=== PATIENT | male | born 1950 | race Caucasian/White ===

== ENCOUNTER → 2016-12-08 | Outpatient (CLI) | payer OTHER | END | disposition home or self-care (01) | LOC: CFH 13:48 | PROVIDERS: ATTEND Internal Medicine Cardiovascular Disease | DX: I10 Essential (primary) hypertension (principal); I20.9 Angina pectoris, unspecified; I35.0 Nonrheumatic aortic (valve) stenosis; I35.1 Nonrheumatic aortic (valve) insufficiency; I37.1 Nonrheumatic pulmonary valve insufficiency; I34.0 Nonrheumatic mitral (valve) insufficiency; I07.1 Rheumatic tricuspid insufficiency; I51.7 Cardiomegaly; E78.5 Hyperlipidemia, unspecified; R91.8 Other nonspecific abnormal finding of lung field; Z87.891 Personal history of nicotine dependence | CPT/HCPCS: 75571; 93306 ==

== ENCOUNTER → 2016-12-19 | Outpatient (CLI) | payer OTHER ==
[~2016-12-19] MED LIST: ESOM40CA PO; NEBI10TA3 PO; OMNIPAQUE 350 MG/ML, 75ML BOTTLE ONE; RIVA20TA PO; ROSU10TA PO; VALS80TA3 PO
== END | disposition home or self-care (01) ==
LOC: CFH 07:55
PROVIDERS: ATTEND Specialist
DX: R91.8 Other nonspecific abnormal finding of lung field (principal); I27.82 Chronic pulmonary embolism; R79.89 Other specified abnormal findings of blood chemistry; M79.89 Other specified soft tissue disorders; M79.605 Pain in left leg; M79.604 Pain in right leg; E78.5 Hyperlipidemia, unspecified; D70.9 Neutropenia, unspecified
CPT/HCPCS: 71260; 76700; 82565; 93970; Q9967

== ENCOUNTER 2016-12-21 11:35 | Observation (INO) | payer OTHER ==
[2016-12-20 10:01] LABS: BLOOD UREA NITROGEN 22 mg/dL (7-18)
[2016-12-20 10:26] VITALS: BP 155/83
[~2016-12-21] VITALS: Ht 182.9 cm; Wt 97.7 kg
[~2016-12-21 11:35] MED LIST changes: -OMNIPAQUE 350 MG/ML, 75ML BOTTLE ONE
[2016-12-21] MEDS ORDERED: SODIUM CHLORIDE 0.9% 1,000 ML IV SCH ×2 (11:56→13:50)
[2016-12-21] MEDS ORDERED: ASPIRIN 325 MG TABLET EC PO ONE (12:00)
[2016-12-21] MEDS ORDERED: ACETAMINOPHEN 325 MG TABLET PO PRN (12:00)
[2016-12-21] MEDS ORDERED: ZOLPIDEM 5MG TABLET PO PRN ×2 (12:00→14:00)
[2016-12-21] MEDS ORDERED: BISACODYL 5 MG EC TABLET PO PRN (12:00)
[2016-12-21] MEDS ORDERED: ONDANSETRON 2MG/ML, 2ML IVPush PRN (12:00)
[2016-12-21] MEDS ORDERED: BISACODYL 10 MG SUPP PR PRN (12:00)
[2016-12-21] MEDS ORDERED: FENTANYL PF 100 MCG/2ML ONE (12:53)
[2016-12-21] MEDS ORDERED: MIDAZOLAM 1 MG/ML, 5ML ONE (12:53)
[2016-12-21] MEDS ORDERED: VERAPAMIL 2.5 MG/ML, 2ML ONE (12:53)
[2016-12-21] MEDS ORDERED: BIVALIRUDIN 250 MG ONE ×2 (12:54→13:08)
[2016-12-21] MEDS ORDERED: TICAGRELOR 90 MG TABLET ONE (12:54)
[2016-12-21] MEDS ORDERED: HEPARIN 1,000 UNITS/ML, 10ML ONE (12:54)
[2016-12-21] MEDS ORDERED: LIDOCAINE 2%, 20ML ONE (12:54)
[2016-12-21] MEDS ORDERED: BIVALIRUDIN 250 MG in DEXTROSE 5% 50 ML IV SCH (13:50)
[2016-12-21] MEDS ORDERED: ASPIRIN 325 MG TABLET EC ONE (13:55)
[2016-12-21 20:23] VITALS: BP 117/73
[2016-12-21] MEDS: ACETAMINOPHEN 325 MG TABLET PO PRN (20:35)
[2016-12-21] MEDS: TICAGRELOR 90 MG TABLET PO SCH (20:36)
[2016-12-21] MEDS ORDERED: ATORVASTATIN 20 MG TABLET PO SCH (21:00)
[2016-12-22 02:00] VITALS: BP 105/61
[2016-12-22] MEDS ORDERED: NEBIVOLOL HCL 5 MG TABLET PO SCH (06:00)
[2016-12-22 06:28] LABS: BLOOD UREA NITROGEN 14 mg/dL (7-18)
[2016-12-22] MEDS ORDERED: OMEPRAZOLE 20 MG CAPSULE.DR PO SCH (07:30)
[2016-12-22 07:43] VITALS: BP 113/67
[2016-12-22] MEDS: TICAGRELOR 90 MG TABLET PO SCH (07:59)
[2016-12-22] MEDS: ACETAMINOPHEN 325 MG TABLET PO PRN (08:08)
[2016-12-22] MEDS ORDERED: ASPIRIN 81 MG TABLET EC PO SCH (09:00)
[2016-12-22] MEDS ORDERED: VALSARTAN 80 MG TABLET PO SCH (09:00)
[2016-12-22] MEDS ORDERED: ASPI-621 PO (09:24)
[2016-12-22] MEDS ORDERED: TICA90TA PO (09:24)
== END 2016-12-22 12:15 | disposition home or self-care (01) ==
LOC: CACL 11:35 → ORIP 13:50 → 5SO 14:21 → DCLOUNGE 12-22 11:40
PROVIDERS: ADMIT Internal Medicine Cardiovascular Disease; ATTEND Internal Medicine Cardiovascular Disease
DX: I25.119 Atherosclerotic heart disease of native coronary artery with unspecified angina pectoris (principal); I10 Essential (primary) hypertension; I26.99 Other pulmonary embolism without acute cor pulmonale; I49.3 Ventricular premature depolarization; E78.5 Hyperlipidemia, unspecified; K21.9 Gastro-esophageal reflux disease without esophagitis; R73.01 Impaired fasting glucose
CPT/HCPCS: 36415; 71020; 80048; 82040; 85025; 85610; 85730; 92928; 93005; 93458; 96365; C1725; C1769; C1874; C1887; C1894; G0378; J0583; J1644; J2250; J3010; J3490; Q9967; C9600

== ENCOUNTER → 2017-12-12 | Outpatient (CLI) | payer MEDICARE, OTHER ==
[~2017-12-12] MED LIST changes: +ASPI-621 PO; +TICA90TA PO
== END | disposition home or self-care (01) ==
LOC: CFH 12:53
PROVIDERS: ATTEND Internal Medicine Cardiovascular Disease
DX: I25.10 Atherosclerotic heart disease of native coronary artery without angina pectoris (principal)
CPT/HCPCS: 78452; 93017; A9502

== ENCOUNTER → 2018-11-05 | Outpatient (CLI) | payer MEDICARE, OTHER ==
[~2018-11-05] MED LIST changes: -ASPI-621 PO; +ASPI81TA45 PO
== END | disposition home or self-care (01) ==
LOC: CFH 06:50
PROVIDERS: ATTEND Internal Medicine Cardiovascular Disease
DX: I25.119 Atherosclerotic heart disease of native coronary artery with unspecified angina pectoris (principal); I08.0 Rheumatic disorders of both mitral and aortic valves
CPT/HCPCS: 78452; 93017; 93306; A9502

== ENCOUNTER 2018-11-11 11:50 | Emergency (ER) | payer MEDICARE, OTHER ==
[~2018-11-11] VITALS: Ht 182.9 cm; Wt 95.0 kg
[2018-11-11 11:55] VITALS: BP 157/78
[2018-11-11 13:11] LABS: BASOPHILS # (AUTO) 0.03 x10^3/uL (0-0.1); BASOPHILS % (AUTO) 1 % (0-1); EOSINOPHILS # (AUTO) 0.15 x10^3/uL (0-0.4); EOSINOPHILS % (AUTO) 3 % (1-7); LYMPHOCYTES # (AUTO) 0.84 x10^3/uL (1-3.4); LYMPHOCYTES % (AUTO) 17 % (22-44); MD NO; MEAN CORPUSCULAR HGB CONC 33.5 g/dL (33.2-36.2); MEAN CORPUSCULAR VOLUME 95.5 fL (81-97); MEAN PLATELET VOLUME 9.1 fL (7.4-10.4); MONOCYTES # (AUTO) 0.51 x10^3/uL (0.2-0.8); MONOCYTES % (AUTO) 10 % (2-9); NEUTROPHILS # (AUTO) 3.44 x10^3/uL (1.8-6.8); NEUTROPHILS % (AUTO) 70 % (42-75); PLATELET COUNT 152 x10^3/uL (130-400); RED BLOOD COUNT 4.62 x10^6/uL (4.38-5.82)
[2018-11-11 13:23] LABS: ALBUMIN 3.7 g/dL (3.4-5.0); ANION GAP 5 mmol/L (5-15); CALCIUM 8.8 mg/dL (8.5-10.1); CHLORIDE 108 mmol/L (98-107)
[2018-11-11 13:26] LABS: ALANINE AMINOTRANSFERASE 33 U/L (12-78); ALKALINE PHOSPHATASE 81 U/L (45-117); BILIRUBIN,TOTAL 0.6 mg/dL (0.2-1.0); CREATININE 1.09 mg/dL (0.7-1.3); TOTAL PROTEIN 7.5 g/dL (6.4-8.2)
[2018-11-11] MEDS ORDERED: HYDROcodone/APAP 5/325 TABLET PO ONE (13:30)
[2018-11-11] MEDS ORDERED: HYDROcodone/APAP 5/325 TABLET ONE (14:00)
--- NOTE | 2018-11-11 14:04 | NUR ---
PT PRESENTED TO ED WITH RIGHT FLANK PAIN X 2 MONTHS. PT UP AMBULATORY AND UNABLE TO LYE IN BED. PT A&OX4. ASSESSMENT COMPLETED.UA SENT TO LAB AND MEDS GIVEN PER MD ORDER.
[2018-11-11 14:12] LABS: MICROSCOPIC NOT IND
[2018-11-11 14:24] LABS: CULTURE INDICATED? NO
--- NOTE | 2018-11-11 15:25 | NUR ---
PT DISCHARGED WITH DISCHARGE INSTRUCTIONS AND FOLLOW UP INTSTRUCTIONS.
== END 2018-11-11 15:27 | disposition home or self-care (01) ==
LOC: ED 15:15
DX: S29.012A Strain of muscle and tendon of back wall of thorax, initial encounter (principal); I10 Essential (primary) hypertension; E78.00 Pure hypercholesterolemia, unspecified; X58.XXXA Exposure to other specified factors, initial encounter; Y93.89 Activity, other specified; Y92.89 Other specified places as the place of occurrence of the external cause; Y99.8 Other external cause status
CPT/HCPCS: 36415; 71046; 80053; 81003; 85025; 93005; 99284

== ENCOUNTER → 2020-11-19 | Outpatient (CLI) | payer MEDICARE, OTHER ==
[~2020-11-19] MED LIST changes: -ROSU10TA PO; +ROSU10TA2 PO
== END | disposition home or self-care (01) ==
LOC: CFH 06:44
PROVIDERS: ATTEND Internal Medicine Cardiovascular Disease
DX: I08.3 Combined rheumatic disorders of mitral, aortic and tricuspid valves (principal); I25.10 Atherosclerotic heart disease of native coronary artery without angina pectoris; I10 Essential (primary) hypertension
CPT/HCPCS: 93306

== ENCOUNTER → 2020-11-20 | Outpatient (CLI) | payer MEDICARE, OTHER ==
[~2020-11-20] MED LIST changes: +REGADENOSON 0.4 MG/5 ML SYRINGE ONE
== END | disposition home or self-care (01) ==
LOC: CFH 07:34
PROVIDERS: ATTEND Internal Medicine Cardiovascular Disease
DX: I25.89 Other forms of chronic ischemic heart disease (principal); I10 Essential (primary) hypertension; I25.10 Atherosclerotic heart disease of native coronary artery without angina pectoris
CPT/HCPCS: 78452; 93017; A9502; J2785